=== PATIENT | female | born 1955 | race Caucasian/White ===

== ENCOUNTER 2017-07-01 10:49 | Inpatient (IN) | payer MEDICAID ==
[~2017-07-01] VITALS: Ht 124.5 cm; Wt 50.8 kg
[~2017-07-01 10:49] MED LIST: ASPI-1159 PO; ATOR10TA69 PO
[2017-07-01 11:51] LABS: BASOPHILS % 0.9 % (0.0-2.0); EOSINOPHILS % 1.9 % (0.0-5.0); HEMATOCRIT. 36.9 % (36.0-48.0); HEMOGLOBIN. 12.4 g/dL (12.0-16.0); LYMPHOCYTES % 20.7 % (20.0-50.0); MEAN CORPUSCULAR HEMOGLOBIN 30.1 pg (28.0-32.0); MEAN CORPUSCULAR VOLUME 89.6 fL (81.0-99.0); MEAN PLATELET VOLUME 9.4 fl (7.4-10.4); MONOCYTES % 6.9 % (2.0-8.0); NEUTROPHILS % 69.6 % (40.0-76.0); PLATELET 203 x1000/uL (130-400); RED BLOOD CELL COUNT 4.12 mill/uL (4.2-5.4); RED CELL DISTRIBUTION WIDTH 12.8 % (11.6-14.6)
[2017-07-01 11:55] LABS: PROTHROMBIN TIME 10.7 sec (9.4-11.6)
[2017-07-01 12:04] LABS: CARBON DIOXIDE 27 mEq/L (21-32); CHLORIDE 107 mEq/L (98-107); TROPONIN I < 0.02 ng/mL (0.00-0.04)
[2017-07-01] MEDS ORDERED: IPRATROPIUM/ALBUTEROL 0.5-3(2.5)MG/3ML NEB INH PRN (13:30)
[2017-07-01] MEDS ORDERED: DIPHENHYDRAMINE 50MG/ML VIAL IV PRN (13:30)
[2017-07-01] MEDS ORDERED: ONDANSETRON HCL 4MG/2ML VIAL IV PRN (13:30)
[2017-07-01] MEDS ORDERED: ACETAMINOPHEN 325MG TABLET PO PRN (13:30)
[2017-07-01] MEDS ORDERED: CLONIDINE 0.1MG TABLET PO PRN (13:30)
[2017-07-01] MEDS ORDERED: POTASSIUM CHLORIDE 20MEQ TABLET SR PO SCH (15:00)
[2017-07-01] MEDS: HYDROCODONE/ACETAMINOPHEN 5/325MG TABLET PO PRN (17:41)
[2017-07-01 20:00] VITALS: BP 150/60
[2017-07-01 21:00] VITALS: BP 150/60
[2017-07-01] MEDS ORDERED: ATORVASTATIN CALCIUM 10MG TABLET PO SCH (21:00)
[2017-07-01] MEDS: AMLODIPINE 5MG TABLET PO SCH (21:04)
[2017-07-02] VITALS: BP 101/32
[2017-07-02] MEDS ORDERED: AMLO2.5T45 PO (00:09)
[2017-07-02] MEDS ORDERED: LORA10TA7 PO (00:09)
[2017-07-02 04:00] VITALS: BP 100/48
[2017-07-02] MEDS ORDERED: REGADENOSON 0.4 MG/5 ML IV ONE ×2 (07:30→09:03)
[2017-07-02 07:41] LABS: EOSINOPHILS % 3.9 % (0.0-5.0); HEMATOCRIT. 32.9 % (36.0-48.0); HEMOGLOBIN. 11.2 g/dL (12.0-16.0); LYMPHOCYTES % 37.5 % (20.0-50.0); MEAN CORPUSCULAR HEMOGLOBIN 30.6 pg (28.0-32.0); MEAN CORPUSCULAR VOLUME 90.3 fL (81.0-99.0); MEAN PLATELET VOLUME 10.2 fl (7.4-10.4); NEUTROPHILS % 49.6 % (40.0-76.0); PLATELET 191 x1000/uL (130-400); RED BLOOD CELL COUNT 3.65 mill/uL (4.2-5.4); RED CELL DISTRIBUTION WIDTH 12.6 % (11.6-14.6)
[2017-07-02 07:42] LABS: CARBON DIOXIDE 21 mEq/L (21-32); CHLORIDE 108 mEq/L (98-107)
[2017-07-02 07:47] LABS: HDL CHOLESTEROL 55 mg/dL (40-59); LDL CHOLESTEROL 69 mg/dL (5-100)
[2017-07-02 08:00] VITALS: BP 117/41
[2017-07-02] MEDS ORDERED: ASPIRIN 81MG EC TABLET PO SCH (09:00)
[2017-07-02] MEDS ORDERED: SODIUM CHLORIDE 0.9% 10ML VIAL ONE (10:00)
[2017-07-02] MEDS: HYDROCODONE/ACETAMINOPHEN 5/325MG TABLET PO PRN (10:47)
[2017-07-02] MEDS: AMLODIPINE 5MG TABLET PO SCH (10:47)
[2017-07-02 14:34] VITALS: BP 112/46
== END 2017-07-02 15:00 | disposition home or self-care (01) | DRG 199 ==
LOC: ER 12:11 → 5WST 12:24 → ENRESERV 17:09
PROVIDERS: ADMIT Internal Medicine; ATTEND Internal Medicine
DX: I11.9 Hypertensive heart disease without heart failure (principal); E78.5 Hyperlipidemia, unspecified; M94.0 Chondrocostal junction syndrome [Tietze]; Z90.710 Acquired absence of both cervix and uterus; K21.9 Gastro-esophageal reflux disease without esophagitis; Z79.82 Long term (current) use of aspirin; Z79.899 Other long term (current) drug therapy
CPT/HCPCS: 36415; 71010; 78452; 80053; 80061; 83880; 84484; 85025; 85610; 87040; 87086; 93005; 93017; 96374; 99291; A4216; A9500; J2405; J2785

== ENCOUNTER 2017-08-10 20:29 | Emergency (ER) | payer MEDICAID ==
[~2017-08-10] VITALS: Ht 134.6 cm; Wt 50.5 kg
[~2017-08-10 20:29] MED LIST changes: +AMLO2.5T45 PO; +LORA10TA7 PO
[2017-08-11 03:16] LABS: BASOPHILS % 0.9 % (0.0-2.0); EOSINOPHILS % 4.3 % (0.0-5.0); HEMOGLOBIN. 11.2 g/dL (12.0-16.0); MEAN CORPUSCULAR HEMOGLOBIN 30.6 pg (28.0-32.0); MEAN CORPUSCULAR VOLUME 89.7 fL (81.0-99.0); MEAN PLATELET VOLUME 9.4 fl (7.4-10.4); MONOCYTES % 6.5 % (2.0-8.0); NEUTROPHILS % 61.3 % (40.0-76.0); PLATELET 215 x1000/uL (130-400); RED BLOOD CELL COUNT 3.68 mill/uL (4.2-5.4); RED CELL DISTRIBUTION WIDTH 13.2 % (11.6-14.6)
[2017-08-11 04:25] LABS: CHLORIDE 109 mEq/L (98-107)
[2017-08-11 06:22] LABS: TROPONIN I < 0.02 ng/mL (0.00-0.04)
[2017-08-11 06:33] VITALS: BP 118/68
== END 2017-08-11 06:39 | disposition home or self-care (01) ==
LOC: ER 22:23
DX: R00.2 Palpitations (principal); I10 Essential (primary) hypertension; E78.00 Pure hypercholesterolemia, unspecified; Z95.0 Presence of cardiac pacemaker; Z79.82 Long term (current) use of aspirin
CPT/HCPCS: 36415; 71045; 80048; 83880; 84484; 85025; 85379; 93005; 99285; Z7610

== ENCOUNTER 2019-07-19 08:45 | Emergency (ER) | payer MEDICAID ==
[~2019-07-19] VITALS: Ht 149.9 cm; Wt 45.0 kg
[~2019-07-19 08:45] MED LIST changes: -ASPI-1159 PO; +ASPI-1497 PO; -LORA10TA7 PO; +TOPUD PO
[2019-07-19] MEDS ORDERED: ACETAMINOPHEN 325MG TABLET PO STA (11:44)
[2019-07-19] MEDS ORDERED: ONDANSETRON HCL 4MG TABLET PO ONE (13:30)
[2019-07-19 14:39] LABS: EOSINOPHILS % 1.6 % (0.0-5.0); HEMATOCRIT. 36.6 % (36.0-48.0); HEMOGLOBIN. 12.3 g/dL (12.0-16.0); LYMPHOCYTES % 31.3 % (20.0-50.0); MEAN CORPUSCULAR HEMOGLOBIN 30.3 pg (28.0-32.0); MEAN CORPUSCULAR VOLUME 90.5 fL (81.0-99.0); MEAN PLATELET VOLUME 9.9 fl (7.4-10.4); MONOCYTES % 6.9 % (2.0-8.0); NEUTROPHILS % 59.2 % (40.0-76.0); PLATELET 253 x1000/uL (130-400); RED BLOOD CELL COUNT 4.05 mill/uL (4.2-5.4); RED CELL DISTRIBUTION WIDTH 13.8 % (11.6-14.6)
[2019-07-19 14:42] LABS: CHLORIDE 106 mEq/L (98-107)
[2019-07-19 14:43] LABS: PROTHROMBIN TIME 10.3 sec (9.6-11.0)
[2019-07-19 15:51] LABS: CLARITY URINE CLEAR (CLEAR); COLOR URINE YELLOW (YELLOW); KETONES URINE NEGATIVE (NEGATIVE); LEUKOCYTE ESTERASE URINE NEGATIVE (NEGATIVE); NITRITE URINE NEGATIVE (NEGATIVE); OCCULT BLOOD URINE TRACE (NEGATIVE); PROTEIN URINE NEGATIVE (NEGATIVE); SPECIFIC GRAVITY URINE 1.017 (1.005-1.030); UROBILINOGEN URINE 0.2 E.U./dL (0.2-1.0)
[2019-07-19] MEDS ORDERED: SODIUM CHLORIDE 0.9% 1,000 ML IV ONE (23:31)
[2019-07-19] MEDS ORDERED: KETOROLAC 30MG/ML VIAL IV STA (23:31)
[2019-07-19] MEDS ORDERED: MORPHINE SULFATE 4 MG/ML CPJ (NOT FOR IM USE) IV STA (23:31)
[2019-07-19] MEDS ORDERED: ONDANSETRON HCL 4MG/2ML INJ IV STA (23:31)
[2019-07-20 02:30] VITALS: BP 145/79
== END 2019-07-20 02:20 | disposition home or self-care (01) ==
LOC: ER 08:45
DX: R30.0 Dysuria (principal); R31.9 Hematuria, unspecified; K21.9 Gastro-esophageal reflux disease without esophagitis; E78.00 Pure hypercholesterolemia, unspecified; I10 Essential (primary) hypertension; Z95.0 Presence of cardiac pacemaker; Z79.82 Long term (current) use of aspirin; Z79.899 Other long term (current) drug therapy
CPT/HCPCS: 36415; 74176; 80053; 81003; 83690; 85025; 85610; 96374; 96375; 99284; J1885; J2270; J2405; J7030

== ENCOUNTER 2023-01-08 18:11 | Emergency (ER) | payer MEDICARE, MEDICAID ==
[~2023-01-08] VITALS: Ht 154.9 cm; Wt 57.0 kg
[~2023-01-08 18:11] MED LIST changes: -AMLO2.5T45 PO; -ASPI-1497 PO; +LORA10TA7 MT; +METO-539 MT; +OMEP20CA14 MT; +SERT-422 MT; -TOPUD PO; +TRAZ-251 MT
[2023-01-08 18:48] VITALS: O2SAT 97
[2023-01-08] MEDS ORDERED: KETOROLAC 60MG/2ML VIAL IM ONE (21:30)
[2023-01-08 21:33] VITALS: BP 147/110
[2023-01-08] MEDS ORDERED: IBUP-2029 MT (22:19)
[2023-01-08] MEDS ORDERED: CYCL10TA21 MT (22:19)
[2023-01-08 22:42] VITALS: PULSE 71; RESP 20; TEMP 98.4
== END 2023-01-08 22:40 | disposition home or self-care (01) ==
LOC: ER 18:11
DX: M54.30 Sciatica, unspecified side (principal); M54.50 Low back pain, unspecified; I10 Essential (primary) hypertension; Z79.899 Other long term (current) drug therapy
CPT/HCPCS: 96372; 99283; J1885; Z7610